=== PATIENT | female | born 1935 | race Caucasian/White ===

== ENCOUNTER 2023-06-09 14:34 | Inpatient (IN) | payer MEDICARE, OTHER, SELFPAY ==
[2023-06-09] VITALS (11 sets, daily range): BP systolic 159–206; BP diastolic 73–111; BMI 25.4
[2023-06-09 09:06] LABS: Glucose - Point of Care 165 mg/dl (70-99)
--- NOTE | 2023-06-09 09:12 | ED.GENMED ---
History of Present Illness
General
Chief Complaint: Change in Mental Status
Source: patient
Exam Limitations: none
Time Seen by Provider: 06/09/23 08:56
Nursing documentation reviewed up to this point in time: agreed with
Travel History
Have you had any contact with someone who has COVID-19?: Unable to Answer
Do you have any symptoms of coronavirus? Fever > 100 degrees, chills, cough, shortness of breath, sore throat, loss of taste or smell, muscle aches, or headache?: Unable to Answer
History of Present Illness
History of Present Illness:
Patient presents to ED from home after fall, heard by neighbors, as she lives in apartment complex. Patient denies loss of consciousness. Patient states that she is slumped forward, does not know why. Denies head injury. Denies headache. Denies
dizziness. Per paramedics, patient was found to be alert, awake, and with her daughter went arrived at scene. Patient was already up and walking around, but noted to have incontinence of urine. Upon arrival, patient is alert and awake but mildly
confused. Patient however, does not have any complaints. Denies recent illness. Denies recent change in medications or diet.
Past History
Past History
ED Past Medical History: Cancer (Breast), HTN and Psychiatric (Depression)
ED Past Surgical History: Tonsilectomy and Other (Lumpectomy, carpal tunnel)
Social History
Tobacco: Former smoker
Alcohol: Occasional
Drug: None
Personal:
Living: with family
Employment: Employed ([employer])
Review of Systems
Review of Systems
Allergies reviewed?: Yes
All Other Systems: ROS reviewed and negative except as documented in HPI and ROS
Constitutional: Reports no symptoms; Denies fatigue or chills
EENT: Reports no symptoms
Respiratory: Reports no symptoms
Cardiac: Reports no symptoms
ABD/GI: Reports no symptoms
: Reports no symptoms
Musculoskeletal: Reports no symptoms
Skin: Reports no symptoms
Neurological: Reports no symptoms
Phy Exam
Physical Exam
Physical Exam:
Physical Exam
General: no apparent distress, not acutely ill. afebrile.
Head: nc/at. eomi
Neck: supple. no meningeal signs.
Heart: s1/s2 regular rate and rhythm, no murmur. equal radial pulses.
Lungs: no acute respiratory distress. clear bilaterally
Abdomen: normal bowel sounds. not tender.
Neuro: alert and oriented x 2. no focal neurological deficits
Skin: no rash
Psychiatric: well kept.
Extremities: right knee: well healed surgical scar with mild swelling/warmth. mildly tender to palpation.
Course
Orders/Labs/Results
Orders:
Orders
06/09/23 09:06
Electrocardiogram (*1) Urgent
Reason for Study: TIA/Stroke
CT Head W/o Iv Contrast Urgent
Comment:
Reason For Exam: mental status change with fall
EKG- Treatment ONCE
06/09/23 09:39
0.9% Sodium Chloride 1000 ml [Nss] 1,000 ml IV BOLUS
Acetaminophen [Tylenol] 650 mg PO NOW STA
06/09/23 Lunch
Cholesterol Lowering
At Your Request: Limited, [employer] Required
Cholesterol Lowering: Sodium, 2 Gram
06/09/23 10:29
Alcohol Urgent
COVID-19 Antigen Urgent
Source: Nasal Swab
Complete Blood Count/With Diff Urgent
Comprehensive Metabolic Panel Urgent
Erythrocyte Sed Rate Urgent
Comment: ADD ON
Lactic Acid Q4H
Comment: CANCEL 2nd LACTIC ACID IF 1st LACTIC ACID IS LESS THAN 2
Magnesium Urgent
Troponin I Urgent
Influenza A+B Rapid Molecular Urgent
PERRY Source: Nasal Swab
Specimen Description:
06/09/23 12:47
Lactic Acid Q4H
Comment: CANCEL 2nd LACTIC ACID IF 1st LACTIC ACID IS LESS THAN 2
Urinalysis Reflex To Culture Urgent
Date Specimen was Collected: 06/09/23
Time Specimen was Collected: 10:41
Urine Microscopic Reflex Cult Urgent
Urine Culture Urgent
PERRY Source: U
Specimen Description:
Date Specimen was Collected: 06/09/23
Time Specimen was Collected: 10:41
06/09/23 13:22
Add On - Microbiology Urgent
Tests Added?: urine culture
06/09/23 13:30
0.9% Sodium Chloride 500 ml [Nss] 500 ml IV BOLUS
06/09/23 13:40
Add On- LAB Urgent
Tests Added?: ESR, CRP
06/09/23 14:18
ORTHOPEDIC CONSULT Routine
Consulting Provider: Oni Sosa
Was physician already notified: Yes
06/09/23 14:19
Knee, Right 4 or More Views [CR Knee- Right 4 Or More View*] Routine
Comment:
Reason For Exam: R knee pain and swelling
06/09/23 14:20
Add On- LAB Routine
Tests Added?: alcohol level
06/09/23 14:24
Admit/Transfer Patient As Directed
Co-Sign Provider:
Level of Care: Inpatient admission
Assign to:: Telemetry
Physician / Group: Manuel/hospitalist
Diagnosis: confusion/fever
Reason for Telemetry: Arrhythmia
Date to Stop Telemetry: 06/12/23
Time to Stop Telemetry: 11:00
Reason for Hospitalization: confusion/fever
Expected length of stay greater than two midnights?: Yes
ELOS- Estimated Length of Stay in days: 3
I certify the patient meets the requirements for IP care: Yes
06/09/23 14:26
Code Status As Directed
Resuscitation Status: Full Code
06/09/23 19:46
0.9% Sodium Chloride [Nss (Preservative Free)] See Protocol IV PRN PRN
Acetaminophen [Tylenol] 650 mg PO Q4HPRN PRN
Enoxaparin Sodium [Lovenox] 40 mg SC QPM
FOLic ACID [Folvite] 1 mg 0.9% Sodium Chloride 50 ml [Nss] 50 ml IV DAILYPRN
Lorazepam [Ativan] 1 mg IV Q1HPRN PRN
Lorazepam [Ativan] 1 mg PO Q2HPRN PRN
Lorazepam [Ativan] 2 mg IV Q1HPRN PRN
Ondansetron Injectable [Zofran] 4 mg IV Q6HPRN PRN
06/09/23 19:46
Case Management Consult Once
Case Management Consult: Other
Comment: Substance abuse counseling
DIETARY CONSULT Routine
Reason for Consult: Nutrition support, possible refeeding guidelines
Activity As Directed
Activity Level: As Tolerated
MSAS SCORE As Directed
MSAS Score 0-4: Repeat MSAS every 2 hours until 0-4 for three consecutive assessments, then every 4 hours x 48
hours.
MSAS Score 5-7: For MILD withdrawl symptoms. Repeat MSAS and RASS every 2 hours
MSAS Score 8-11: For MODERATE withdrawal symptoms. Repeat MSAS and RASS every 1 hour. Consider ICU or IMU
level of care.
MSAS Score > 11: For SEVERE withdrawal symptoms. Repeat MSAS and RASS every 1 hour. Notify provider, consider
ICU level of care.
MSAS Additional Instructions: If no improvement or no decrease in score from severe to moderate within 12
hours, consult psychiatry
MSAS Notify Provider: Notify provider if patient requires more than 10 mg of Lorazepam in eight hour period.
Vital Signs As Directed
Frequency: Per unit guidelines
DX Deep Vein Thrombosis Video Routine
06/09/23 20:00
Sennosides [Senokot] 17.2 mg PO BID
Thiamine Injection 200 mg IV Q12
06/09/23 21:00
CefTRIAXone [Rocephin] 1,000 mg IV Q24H
06/09/23 22:00
Famotidine [Pepcid] 20 mg PO HS
06/10/23 06:20
Basic Metabolic Panel IN AM
Complete Blood Count/No Diff IN AM
Magnesium IN AM
06/10/23 08:00
Duloxetine Delayed Release [Cymbalta Delayed Release] 20 mg PO DAILY
FOLic ACID [Folvite] 1 mg PO DAILY
Metoprolol Xl [Toprol Xl] 25 mg PO DAILY
06/10/23 12:00
Olmesartan Medoxomil [Benicar] 40 mg PO NOON
06/11/23 06:00
Basic Metabolic Panel IN AM
Complete Blood Count/No Diff IN AM
06/12/23 06:00
Basic Metabolic Panel IN AM
Complete Blood Count/No Diff IN AM
06/12/23 11:00
DC Protocol for Telemetry ONCE
06/12/23 20:00
Thiamine HCl [Vitamin B1] 100 mg PO BID
06/13/23 06:00
Basic Metabolic Panel IN AM
Complete Blood Count/No Diff IN AM
06/14/23 06:00
Basic Metabolic Panel IN AM
Complete Blood Count/No Diff IN AM
Abnormal Lab Results
06/09/23 06/09/23 06/09/23
09:04 10:29 12:47
RBC 7.01 H 10^6/uL
(4.20-5.40)
Hgb 19.6 H g/dL
(12.0-16.0)
Hct 57.8 H %
(37.0-47.0)
Absolute Neuts (auto) 7.7 H 10^3/uL
(1.4-6.5)
Absolute Lymphs (auto) 0.7 L 10^3/uL
(1.2-3.4)
Neutrophils % 86.5 H %
(42.2-75.2)
Lymphocytes % 7.8 L %
(20.5-51.1)
Sodium 134 L mmol/L
(135-145)
Glucose 130 H mg/dl
(70-99)
Lactic Acid 2.9 H mmol/L
(0.7-2.0)
Magnesium 1.5 L mg/dl
(1.6-2.3)
Total Bilirubin 1.4 H mg/dl
(0.2-1.3)
Urine Ketones 2+ A
(Negative)
Ur Occult Blood Reflex 2+ A
(Negative)
Urine RBC 11-15 A /HPF
(0-2)
Urine Bacteria (Reflex) Few A
(Negative)
Urine Albumin (Reflex) 3+ A
(Neg - Trace)
POC Glucose 165 H mg/dl
(70-99)
06/09/23 10:29
06/09/23 10:29
Vital Signs
Initial and Last Documented VS:
Initial Vital Signs
Temp Pulse BP Pulse Ox
99.1 F 66 194/87 93
06/09/23 09:00 06/09/23 09:00 06/09/23 09:00 06/09/23 09:00
Last Documented Vital Signs
Temp Pulse Resp BP Pulse Ox
97.7 F 64 20 147/77 94
06/10/23 07:30 06/10/23 07:30 06/10/23 07:30 06/10/23 07:30 06/10/23 07:30
MDM/Problems Addressed
MDM/Problems Addressed:
History and exam concerning for likely viral illness, contributing to transient confusion noted during observation, although improving. Will be admitted for further evaluation and treatment.
Blood cx and urine cx pending.
ESR, CRP ordered due to mild right knee swelling/warmth, s/p replacement in 04/01.
*EKG
Interpreted by ED Provider?: Yes
EKG Intrepretation Date: 06/09/23
Heart Rate: 64
Rate: normal
Rhythm: sinus and PAC's
Sage: normal axis
Interval: normal interval
QRS Pattern: right bundle branch block
*Critical Care Note
Total Time (30-74mins, 75-104mins- exclusive of procedures): Not Applicable
ED Attending Note
-
Portions of this chart may have been created with voice recognition software.� Occasional wrong word or��sound alike� substitutions may have occurred due to the inherent limitations of voice recognition software.
Discharge Plan
Departure
Patient Disposition: Admit
Date of Disposition: 06/09/23
Time of Disposition: 13:51
Presentation/result/management discussed w/ accepting MD/DO: Hospitalist
Condition: Fair
Covid-19: Negative COVID-19
Discharge Problem:
Fever, Altered mental status
Interventions
Interventions:
*Risk Screen - Suicide Last Done: 06/09/23 10:59
*General Assessment Last Done: 06/09/23 10:59
*Neglect/Abuse Screening Last Done: 06/09/23 10:59
ED- Fall Risk Assessment Last Done: 06/09/23 20:03
*ED COVID-19 Vaccine History Last Done: 06/09/23 10:59
*Nursing Disposition Last Done: 06/09/23 20:03
ED- Pulmonary Assessment Last Done: 06/09/23 20:03
ED- Neurological Assessment Last Done: 06/09/23 18:18
ED Swallowing Screen Last Done: 06/09/23 11:02
Discharge Date and Time
Discharge Date/Time: 06/09/23 20:04
[2023-06-09] MEDS: NSS 1000 IV (10:30)
[2023-06-09] MEDS: TYLENOL 650 MG PO (10:30)
[2023-06-09 10:44] LABS: % Basophils 0.3 % (0-2); % Immature Granulocytes 0.5 % (0-0.5); % Lymphocytes 7.8 % (20.5-51.1); % Monocytes 4.9 % (1.7-9.3); % Neutrophils 86.5 % (42.2-75.2); Absolute Lymphocytes 0.7 10^3/uL (1.2-3.4); Absolute Monocytes 0.4 10^3/uL (0.1-0.6); Absolute Neutrophils 7.7 10^3/uL (1.4-6.5); Hematocrit 57.8 % (37.0-47.0); Hemoglobin 19.6 g/dL (12.0-16.0); Mean Corp Hgb Conc. 33.9 g/dL (33.0-37.0); Mean Corpuscular Volume 82.5 fL (81.0-99.0); Mean Platelet Volume 8.8 fL (7.4-10.4); Nucleated Red Blood Cells % 0 %; Platelet Count 140 10^3/uL (130-400); Red Blood Cell Count 7.01 10^6/uL (4.20-5.40); Red Cell Dist. Width 14.4 % (11.5-14.5); White Blood Cell Count 8.9 10^3/uL (4.8-10.8)
[2023-06-09 11:01] LABS: Lactic Acid 2.9 mmol/L (0.7-2.0)
[2023-06-09 11:10] LABS: ALT (SGPT) 16 U/L (0-35); AST (SGOT) 29 U/L (14-36); Albumin 4.3 g/dl (3.5-5.0); Alkaline Phosphatase 82 U/L (38-126); Blood Urea Nitrogen 12 mg/dl (7-17); Calcium 8.7 mg/dl (8.4-10.2); Carbon Dioxide 26 mmol/L (22-30); Chloride 98 mmol/L (98-107); Glucose 130 mg/dl (70-99); Magnesium 1.5 mg/dl (1.6-2.3); Potassium 3.5 mmol/L (3.5-5.1); Sodium 134 mmol/L (135-145); Total Bilirubin 1.4 mg/dl (0.2-1.3); Total Protein 7.2 g/dl (6.3-8.2); eGFR > 60.00
[2023-06-09 11:13] LABS: Troponin I 0.034 ng/ml
[2023-06-09 11:49] LABS: COVID-19 Antigen Negative (Negative)
[2023-06-09 12:59] LABS: Urine Albumin 3+ (Neg - Trace); Urine Bilirubin Negative (Negative); Urine Character Clear (Clear); Urine Color Yellow; Urine Glucose Negative (Negative); Urine Ketone 2+ (Negative); Urine Leukocyte Negative (Negative); Urine Nitrite Negative (Negative); Urine Occult Blood 2+ (Negative); Urine Urobilinogen Negative (Neg - 1+)
[2023-06-09 13:14] LABS: Lactic Acid 1.7 mmol/L (0.7-2.0)
[2023-06-09 13:16] LABS: Urine Mucus Few; Urine Squamous Cell 0-2 /LPF (Few)
[2023-06-09 13:18] LABS: Urine Amorphous Seen; Urine Hyaline Cast 0-2 /LPF (0-2)
[2023-06-09 13:19] LABS: Urine Bacteria Few (Negative); Urine White Cell 0-2 /HPF (0-5)
--- NOTE | 2023-06-09 13:47 | HPS.HSE ---
Addendum entered and electronically signed by Margot Jackson MD 06/09/23 14:50:
Allergies
Allergy/AdvReac Type Severity Reaction Status Date / Time
ibuprofen [From Advil] Allergy Anaphylaxis Verified 06/09/23 11:11
Home Medications
duloxetine 20 mg capsule,delayed release 20 mg PO DAILY 09/10/13
metoprolol succinate 25 mg tablet,extended release 24 hr 25 mg PO DAILY 03/22/23
olmesartan 40 mg tablet 40 mg PO NOON #0 tabs 03/25/23
febuxostat 40 mg tablet (Uloric) 40 mg PO DAILY 06/09/23
Original Note:
Family Physician
-
Family Physician: PHYSICIAN PRIVATE
Chief Complaint
-
fall and fever
History of Present Illness
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
Patient denies loss of consciousness/ head injury etc. She is AOx3 but slow to respond to question.
Per daughter, she is more confused compared to baseline. Also with fever and incontinence of urine.�
Patient continues to drink alcohol daily.
Medical History
Past Medical History
Past Medical History: Reports Other
Additional Past Medical History:
HTN
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
Emphysema
daily alcohol drinking
recent R knee replacement by ortho 03/24/2023
Past Surgical History: Reports Other
Additional Past Surgical History:
R knee replacement by ortho 03/24/2023
Social History
Tobacco: Non-smoker
Alcohol: Daily
Living: Alone
Family History
Family History: Not pertinent
Allergies / Home Medications
Allergies reflects when Allergies were last updated in [employer].
Home Medications with original date entered in [employer]
Allergy/Medication List:
Medications on admission are unable to be verified or confirmed at this time.
Review of Systems
-
Constitutional: Reports Fever
Physical Exam
Vital Signs
Vital Signs
Temp Pulse Resp BP Pulse Ox
37.3 C 63 33 195/111 88
06/09/23 09:00 06/09/23 12:30 06/09/23 12:30 06/09/23 11:50 06/09/23 12:30
Physical Exam
General: Well Developed, Well Nourished, No Apparent Distress, Comfortable and Conversant
HEENT: NormoCephalic, Moist mucous membranes and Atraumatic
Respiratory: Clear and Non Labored Respirations; No Accessory Resp Muscle Use
Cardiac: S1/S2, Regular Rhythm and Murmur; No Rub
GI: Soft, Non Tender, Non Distended and Normal Bowel Sounds; No Organomegaly
Rectal: Deferred by Provider
Musculoskeletal: No Clubbing, No Cyanosis and No Edema
Skin: No Rash
Neuro: Awake and Alert
Psych: Calm
Laboratory Results
-
06/09/23 10:29
06/09/23 10:29
Laboratory Results
Lactic Acid 1.7 mmol/L (0.7-2.0) 06/09/23 12:47
Total Bilirubin 1.4 mg/dl (0.2-1.3) H 06/09/23 10:29
AST 29 U/L (14-36) 06/09/23 10:29
ALT 16 U/L (0-35) 06/09/23 10:29
Alkaline Phosphatase 82 U/L (38-126) 06/09/23 10:29
Troponin I 0.034 ng/ml 06/09/23 10:29
Data Reviewed
-
Lab Data: Labs Reviewed by me
Impression/Plan
-
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
Patient denies loss of consciousness/ head injury etc. She is AOx3 but slow to respond to question.
Per daughter, she is more confused compared to baseline. Also with fever and incontinence of urine.�
Patient continues to drink alcohol daily.
A/P:
# Confusion/acute metabolic encephalopathy per daughter
# Mechanical fall at home
# Urinary incontinence, possible UTI
# lactic acidosis POA, resolved
CT head unrevealing
Check urine Cx
Ceftriaxone after eval by ortho (see below)
Ortho CS for
PT OT eval for fall
# R Knee osteoarthritis s/p right total knee arthroplasty by Dr. Medardo Isbell on 03/24/2023.
R knee warm and swollen on exam
Check R knee XR
Ortho CS for eval of joint aspiration (hopefully aspiration to occur before initiation of antibiotic)
# systolic murmur on exam
No significant valvular heart disease�with mild tricuspid regurgitation from recent echo 03/2023.
Will check repeat echo
# Essential Hypertension.
Cont FOOD WRITER Toprol/Olmesartan with holding parameter
# First-degree atrioventricular block, right bundle branch block, left anterior fascicular block, and premature ventricular contractions, asymptomatic.
Echo from 03/2023: EF 60�to 65%.� There is grade 1 diastolic dysfunction.�
# Chronic emphysema, stable
# h/o Pernicious anemia
Hgb high this admission, possibly relate to hemoconcentration
# Daily alcohol, two drinks reported daily.
MSAS protocol
DVT ppx: Lovenox SQ
FC
[2023-06-09] MEDS: NSS 500 IV (14:00)
[2023-06-09 14:07] LABS: Erythrocyte Sed Rate 1 mm/hour (0-20)
--- NOTE | 2023-06-09 17:09 | CON.MD ---
Consultation - Medical
-
Patient seen and examined
Patient presents with change in mental status and fall
Patient and daughter states that patient has had swollen knee since the surgery and has been working on ROM with the therapist. They have not noticed any difference in terms of pain or function
The right knee is definitely more swollen compared to the left, but there is no erythema, slight warmth. No pain with AROM of the knee
X-rays show no hardware complications
I do not believe the knee is the source of infection.
Will continue to monitor
[2023-06-09 18:12] LABS: Alcohol None Detected
--- NOTE | 2023-06-09 21:00 | PTCARENOTE ---
Patient received from ED via stretcher and was assisted to bed by staff. DIL at bedside. They were oriented to room and surroundings. As reported by ED staff patient with expressive aphasia. She uses wrong words in her speech but is aware and
frustrated by this. Able to understand meaning through the rest of the sentence. She passes her swallow eval. NIH-1. During admission intake mixed information presented by patient and daughter in law. Patient forgetful of some history and
gives different information at different times. She does state that she had nausea and vomiting 1-2 days prior to fall. She cannot recall her last cocktail but believes it may have been Wednesday night. She states her walker tipped over and then
she fell. She does not know how long she was on the floor before her daughter found her. Plan of care reviewed with patient and her DIL. See nursing assessment for physical findings.
[2023-06-09] MEDS: LOVENOX 40 MG SC (22:32)
[2023-06-09] MEDS: SENOKOT 17.1999999999999993 MG PO (22:33)
[2023-06-09] MEDS: THIAMINE INJECTION 200 MG IV (22:33)
[2023-06-09] MEDS: ROCEPHIN 1000 MG IV (22:34)
[2023-06-09] MEDS: STERILE WATER FOR INJECTION 10 ML IV (22:34)
[2023-06-09] MEDS: PEPCID 20 MG PO (22:34)
[2023-06-09] MEDS: FLUSH (NSS) 2 FLUSH IV (22:35)
[2023-06-10] VITALS (7 sets, daily range): BP systolic 144–175; BP diastolic 67–90; PULSE 61; O2SAT 93
[2023-06-10] MEDS: LOPRESSOR 12.5 MG PO (00:20)
[2023-06-10] MEDS: TYLENOL 650 MG PO (00:21)
[2023-06-10] MEDS: SENOKOT 17.1999999999999993 MG PO ×2 (07:39→20:38)
[2023-06-10] MEDS: CYMBALTA DELAYED RELEASE 20 MG PO (07:39)
[2023-06-10] MEDS: TOPROL XL 25 MG PO (07:39)
[2023-06-10] MEDS: THIAMINE INJECTION 200 MG IV ×2 (07:40→20:40)
[2023-06-10] MEDS: FOLVITE 1 MG PO (07:40)
--- NOTE | 2023-06-10 07:51 | W.PN.UPDATE ---
Update Note
Progress Note Update
Patient seen and evaluated by orthopedic surgery this morning. She is lying in bed comfortably, does not appear to be in any acute distress. She presented to ED yesterday with change in mental status and fall. On admission, patient also had a
fever; currently 98.3F. Patient had a right total knee replacement performed on 03/24/[address] Isbell. She denies any change or increase in swelling of her right knee since her surgery. She denies any difference in terms of pain or function
since her surgery. ESR 1. CRP 6.80. WBC from 06/09/2023 within normal limits. Clinically, the right knee does have a mild effusion in comparison to the contralateral side, however no signs of erythema or increased pain with AROM or PROM. Slight
warmth in comparison to the contralateral side. Plain radiographs of the right knee without radiographic evidence for complication of the right total knee arthroplasty. Small suprapatellar joint effusion. Given the above information, at this time
there is low suspicion that her right knee is the source, therefore would defer aspiration of the right knee unless symptoms/clinical picture changes. Orthopedic surgery will continue to monitor and follow along.
[2023-06-10 07:54] LABS: Hematocrit 49.4 % (37.0-47.0); Hemoglobin 16.6 g/dL (12.0-16.0); Mean Corp Hgb Conc. 33.6 g/dL (33.0-37.0); Mean Corpuscular Hgb 28.2 pg (27.0-31.0); Mean Corpuscular Volume 83.9 fL (81.0-99.0); Platelet Count 146 10^3/uL (130-400); Red Blood Cell Count 5.89 10^6/uL (4.20-5.40); Red Cell Dist. Width 13.4 % (11.5-14.5); White Blood Cell Count 5.6 10^3/uL (4.8-10.8)
[2023-06-10 08:42] LABS: Blood Urea Nitrogen 13 mg/dl (7-17); Calcium 7.7 mg/dl (8.4-10.2); Carbon Dioxide 25 mmol/L (22-30); Chloride 100 mmol/L (98-107); Estimated Creatinine Clearance 55 ml/min; Glucose 84 mg/dl (70-99); Magnesium 1.6 mg/dl (1.6-2.3); Sodium 133 mmol/L (135-145); eGFR > 60.00
--- NOTE | 2023-06-10 09:02 | W.PN.HOSP.TC ---
Addendum entered and electronically signed by Margot Jackson MD 06/10/23 14:29:
Updated daughter on the phone, will check MRI brain due to her persistent confusion.
Original Note:
Today's Communication/Plan
-
see A/P
Assessment / Plan
Assessment / Plan
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
Patient denies loss of consciousness/ head injury etc. She is AOx3 but slow to respond to question.
Per daughter, she is more confused compared to baseline. Also with fever and incontinence of urine.�
Patient continues to drink alcohol daily.
A/P:
# Confusion/acute metabolic encephalopathy per daughter
# Mechanical fall at home
# Urinary incontinence, possible UTI
# lactic acidosis POA, resolved
CT head x2 unrevealing
Follow urine Cx, blood culture
Cont Ceftriaxone
PT OT eval for fall
# R Knee osteoarthritis s/p right total knee arthroplasty by Dr. Medardo Isbell on 03/24/2023.
R knee warm and slightly swollen on exam
R knee XR without complication of the right total knee arthroplasty.
Ortho on board, felt less likely right knee infection, defer aspiration of the right knee for now
# systolic murmur on exam
No significant valvular heart disease�with mild tricuspid regurgitation from recent echo 03/2023.
Check updated echo
# Essential Hypertension.
Cont NUT THREADER Toprol/Olmesartan with holding parameter
# First-degree atrioventricular block, right bundle branch block, left anterior fascicular block, and premature ventricular contractions, asymptomatic.
Echo from 03/2023: EF 60�to 65%.� There is grade 1 diastolic dysfunction.�
# Chronic emphysema, stable
# h/o Pernicious anemia
Hgb high this admission, already downtrended, cont to monitor and consider heme eval if remain elevated
# Daily alcohol, two drinks reported daily.
MSAS protocol
DVT ppx: Lovenox SQ
FC
Anticipated Discharge: > 48 hours
Subjective/Interval History
-
Date of Service: June 10, 2023
Objective Data
-
Labs:
Laboratory Results
06/10/23
06:20
WBC 5.6
Hgb 16.6 H
Hct 49.4 H
Plt Count 146
Sodium 133 L
Potassium Pending
Chloride 100
Carbon Dioxide 25
BUN 13
Creatinine 0.6
Glucose 84
Calcium 7.7 L
Vital Signs:
Vital Signs
Temp Pulse Resp BP Pulse Ox
36.5 C 64 20 147/77 94
06/10/23 07:30 06/10/23 07:30 06/10/23 07:30 06/10/23 07:30 06/10/23 07:30
I&O
06/09/23 06/10/23 06/11/23
06:59 06:59 06:59
Intake Total 60 / 60
Output Total 250 / 250
Balance -190 / -190
Review of Systems
-
All other systems: Reviewed and negative
Physical Exam
-
General: Well Developed, Well Nourished, No Apparent Distress, Comfortable and Conversant; Negative Respiratory Distress
HEENT: Normocephalic, Atraumatic, Nose Appears Normal and Ears Appear Normal; Negative Oxygen
Respiratory: Clear to Auscultation and Non Labored Respirations; Negative Accessory Resp Muscle Use
Cardiac: Regular Rhythm and S1/S2
GI: Soft, Nontender, Nondistended and Normal Bowel Sounds
Skin: Warm and Dry
Neuro: Awake and AO x 3
Psych: Calm
Data Reviewed
-
CT Scan: Report Reviewed by me
Labs: Labs Reviewed by me
[2023-06-10 09:31] LABS: Potassium 3.3 mmol/L (3.5-5.1)
[2023-06-10] MEDS: BENICAR 40 MG PO (11:15)
--- NOTE | 2023-06-10 11:51 | CM ---
Met with patient at the bedside and spoke with patient's daughter, Cinthya Esquivel, via phone; initial assessment and CM Consult completed
Patient lives alone in a 2nd floor Condo; 14 steps up to enter; Condo has a loft but the patient lives on the main level; bath has a stall shower with grab bar
Daughter and son live nearby.
PLOF: patient reports she is independent with ADLs; ambulates with walker at night and a cane when she goes outside; knee replacement in March 2023; drives
No history of SNF; currently going to outpatient therapy in [place]
Daughter will transport home
Offered counseling as CM Consult requested. Patient and daughter declined. Daughter reports that mother has 1-2 servings of alcohol every day; can stop if she wanted to and did not drink after she had her surgery for weeks when she was staying at
her daughter's house
PT recommends SNF vs Acute Rehab; list of facilities will be provided to patient and daughter when disposition determination is identified
Plan: CM will continue to follow and support discharge planning
[2023-06-10] MEDS: LOVENOX SC (16:03)
[2023-06-10] MEDS: STERILE WATER FOR INJECTION 10 ML IV (21:34)
[2023-06-10] MEDS: ROCEPHIN 1000 MG IV (21:35)
[2023-06-10] MEDS: PEPCID 20 MG PO (21:35)
[2023-06-11] VITALS (8 sets, daily range): BP systolic 131–164; BP diastolic 63–84; PULSE 67; O2SAT 94
--- NOTE | 2023-06-11 07:28 | PN.CDI ---
CDI
- -
CDI:
Physician Documentation Request
Admit Date: 06/09/23 14:34
Dear Doctor Manuel,
Please review the following and provide your response in the progress notes.
Clinical Indicators:
Laboratory Tests
06/09/23 06/10/23
10:29 06:20
Sodium 134 L 133 L
Please clarify in the progress notes, the appropriate diagnosis, if significant, that supports the above abnormalities and additional evaluation, monitoring and/or treatment rendered:
Hyponatremia
Abnormal lab value, clinically insignificant
Other
Use of terms such as suspected, likely, concern for, or probable (associated with a specific diagnosis that is being evaluated, monitored, or treated as if it exists) are acceptable and can be coded in the inpatient setting, when documented at the
time of discharge.
Thank you,
Rose Mary Shaw RN BSN CCDS
CDI Specialist
please contact via tiger text
Please use your independent medical judgment in providing your response.
--- NOTE | 2023-06-11 07:30 | PN.CDI ---
CDI
- -
CDI:
Physician Documentation Request
Admit Date: 06/09/23 14:34
Dear Doctor Manuel,
Please review the following and provide your response in the progress notes.
Clinical Indicators:
Laboratory Tests
06/09/23 06/10/23
10:29 06:20
Potassium 3.5 3.3 L
Please clarify in the progress notes, the appropriate diagnosis, if significant, that supports the above abnormalities and additional evaluation, monitoring and/or treatment rendered:
Hypokalemia
Abnormal lab value, clinically insignificant
Other
Use of terms such as suspected, likely, concern for, or probable (associated with a specific diagnosis that is being evaluated, monitored, or treated as if it exists) are acceptable and can be coded in the inpatient setting, when documented at the
time of discharge.
Thank you,
Rose Mary Shaw RN BSN CCDS
CDI Specialist
please contact via tiger text
Please use your independent medical judgment in providing your response.
[2023-06-11] MEDS: CYMBALTA DELAYED RELEASE 20 MG PO (07:31)
[2023-06-11] MEDS: TOPROL XL 25 MG PO (07:31)
[2023-06-11] MEDS: THIAMINE INJECTION 200 MG IV ×2 (07:31→20:16)
[2023-06-11] MEDS: FOLVITE 1 MG PO (07:31)
[2023-06-11] MEDS: SENOKOT 17.1999999999999993 MG PO ×2 (07:31→20:16)
[2023-06-11] MEDS: LOVENOX SC (07:38)
--- NOTE | 2023-06-11 08:41 | PN.CDI ---
CDI
- -
CDI:
Physician Documentation Request
Admit Date: 06/09/23 14:34
Dear Doctor Gil,
Please review the following and provide your response in the progress notes.
Clinical Indicators:
06/09/23 06/10/23
10:29 06:20
Potassium 3.5 3.3 L
Please clarify in the progress notes, the appropriate diagnosis, if significant, that supports the above abnormalities and additional evaluation, monitoring and/or treatment rendered:
Hypokalemia
Abnormal lab value, clinically insignificant
Other
Use of terms such as suspected, likely, concern for, or probable (associated with a specific diagnosis that is being evaluated, monitored, or treated as if it exists) are acceptable and can be coded in the inpatient setting, when documented at the
time of discharge.
Thank you,
Rose Mary Shaw RN BSN CCDS
CDI Specialist
please contact via tiger text
Please use your independent medical judgment in providing your response.
--- NOTE | 2023-06-11 08:43 | PN.CDI ---
CDI
- -
CDI:
Physician Documentation Request
Admit Date: 06/09/23 14:34
Dear Doctor Gil,
Please review the following and provide your response in the progress notes.
Clinical Indicators:
Laboratory Tests
06/09/23 06/10/23
10:29 06:20
Sodium 134 L 133 L
Please clarify in the progress notes, the appropriate diagnosis, if significant, that supports the above abnormalities and additional evaluation, monitoring and/or treatment rendered:
Hyponatremia
Abnormal lab value, clinically insignificant
Other
Use of terms such as suspected, likely, concern for, or probable (associated with a specific diagnosis that is being evaluated, monitored, or treated as if it exists) are acceptable and can be coded in the inpatient setting, when documented at the
time of discharge.
Thank you,
Rose Mary Shaw RN BSN CCDS
CDI Specialist
please contact via tiger text
Please use your independent medical judgment in providing your response.
[2023-06-11 08:57] LABS: Hematocrit 49.7 % (37.0-47.0); Hemoglobin 16.5 g/dL (12.0-16.0); Mean Corp Hgb Conc. 33.2 g/dL (33.0-37.0); Mean Corpuscular Hgb 27.8 pg (27.0-31.0); Mean Corpuscular Volume 83.8 fL (81.0-99.0); Mean Platelet Volume 9.7 fL (7.4-10.4); Platelet Count 126 10^3/uL (130-400); Red Blood Cell Count 5.93 10^6/uL (4.20-5.40); Red Cell Dist. Width 13.6 % (11.5-14.5); White Blood Cell Count 5.7 10^3/uL (4.8-10.8)
--- NOTE | 2023-06-11 09:09 | W.PN.HOSP.TC ---
Today's Communication/Plan
-
see bold
Assessment / Plan
Assessment / Plan
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
Patient denies loss of consciousness/ head injury etc. She is AOx3 but slow to respond to question. Per daughter, she is more confused compared to baseline. Also with fever and incontinence of urine.�Patient continues to drink alcohol daily.
Gen: NAD, AAOx3.
Eyes: EOMI, PERRLA, no scleral icterus.
Neck: supple.
CV: RRR, +S1/S2, no m/r/g.
Resp: CTAB, no rales, wheezes, or rhonchi.
Abd: +BS, soft, NT, ND
Skin: No rashes.
Neuro: CN 2-12 intact, non-focal.
Psych: Normal mood and affect.
Echo: Normal left ventricular size, wall thickness and systolic function. No regional
�wall motion abnormalities are seen. LV ejection fraction is 60% by Shahid's
�method of discs. Diastolic function not assessed.
�Normal right ventricular size and function.
�Thickened trileaflet aortic valve. Aortic sclerosis without stenosis. No aortic
�regurgitation is seen.
�Trace tricuspid regurgitation. Estimated pulmonary artery pressure of 30-35
�mmHg assuming a right atrial pressure of 3 mmHg.
�
�Compared to prior study dated 03/10/23 which was directly reviewed, no
�significant change within limits of the study quality
CT brain: No acute intracranial abnormalities. Findings again seen compatible with diffuse cortical atrophy with nonspecific white matter changes as described above.
Repeat CT brain: No acute intracranial abnormality.
Acute metabolic encephalopathy as per daughter:
-with mechanical fall at home
-note UTI has been ruled out with no pyuria and NEG UCx, stop Rocephin
-Lactic acidosis POA, resolved
-CT head NEG x 2
-PT/OT
R Knee osteoarthritis:
-s/p right total knee arthroplasty by Dr. Medardo Isbell on 03/24/2023.
-R knee warm and slightly swollen on exam
-R knee XR without complication of the right total knee arthroplasty.
-Ortho on board, felt less likely right knee infection, defer aspiration of the right knee for now
Other problems:
Essential Hypertension: Cont BB/ARB
First-degree atrioventricular block, right bundle branch block, left anterior fascicular block, and premature ventricular contractions, asymptomatic.
Chronic emphysema
h/o possible polycythemia vera, Hb down
Daily alcohol use of two drinks daily: MSAS protocol
Hyponatremia, resolved
Hypokalemia, resolved
FULL/Lovenox
Medically stable for discharge. Case management aware.
Anticipated Discharge: Today
Subjective/Interval History
-
Date of Service: June 11, 2023
No new complaints. Denies chest pain or shortness of breath
Objective Data
-
Labs:
Laboratory Results
06/11/23
08:18
WBC 5.7
Hgb 16.5 H
Hct 49.7 H
Plt Count 126 L
Sodium Pending
Potassium Pending
Chloride Pending
Carbon Dioxide Pending
BUN Pending
Creatinine Pending
Glucose Pending
Calcium Pending
Vital Signs:
Vital Signs
Temp Pulse Resp BP Pulse Ox
98.5 F 72 22 145/75 92
06/11/23 07:30 06/11/23 07:30 06/11/23 07:30 06/11/23 07:30 06/11/23 07:30
I&O
06/10/23 06/11/23 06/12/23
06:59 06:59 06:59
Intake Total 60 / 60 840 / 840
Output Total 250 / 250
Balance -190 / -190
[2023-06-11 09:17] LABS: Blood Urea Nitrogen 16 mg/dl (7-17); Calcium 8.5 mg/dl (8.4-10.2); Carbon Dioxide 28 mmol/L (22-30); Chloride 99 mmol/L (98-107); Estimated Creatinine Clearance 55 ml/min; Glucose 99 mg/dl (70-99); Potassium 3.6 mmol/L (3.5-5.1); Sodium 136 mmol/L (135-145); eGFR > 60.00
--- NOTE | 2023-06-11 09:29 | W.PN.UPDATE ---
Update Note
Progress Note Update
Patient ambulating from the latrine this morning on her walker at the time of rounds. upon questioning she reports her knee feels much better. Still mildly swollen but no clinical (visual or on exam) signs of PJI. Absolutely no indication to
aspirate. Afeb this AM. WBC WNL. Inflammatory markers WNL. Appreciate the primary team with her continued workup. If deemed safe PT/OT could be considered for her right knee. Orthopedic surgery to follow peripherally at this time. Please reengage
with any questions throughout the course of her admission as it necessitates
[2023-06-11] MEDS: BENICAR 40 MG PO (11:59)
--- NOTE | 2023-06-11 14:16 | CM ---
Addendum entered by Denise Bridges 06/11/23 16:07:
Patient has been accepted at [facility] 06/12/23, per Patient daughter Cinthya will transport. Needs COVID test, IMM completed and placed on chart.
[facility]
Report [phone]

Addendum entered by Denise Bridges 06/11/23 15:07:
[facility] do not have a bed for patient. Plan is [facility], referral sent to [facility] and waiting on a determination.
Original Note:
clubhouse manager reviewed patient's chart and rehab options reviewed. Referral sent to [facility] and to [facility], patient's is also agreeable to [facility].
Plan; Await determination from [facility] and then reach out to [facility] for a bed tomorrow if there are no beds at [facility].
--- NOTE | 2023-06-11 15:54 | CON.NEURO4 ---
Consultation - Neurology 4
-
CONSULTING PHYSICIAN: Gina Petersen
REFERRING PHYSICIAN: Hospitalist
DICTATED BY: Gina Petersen
DATE/TIME OF REQUEST: 06/11/23
DATE/TIME OF CONSULTATION: 06/11/23
Reason for Consultation: Stroke on MRI brain
History of Present Illness:
Patient is an 88-year-old woman with a past medical history of hypertension, emphysema, alcohol use who presented to hospital with confusion. She had had a mechanical fall at home and at first was thought to have urinary tract infection was treated
with antibiotics but had negative urine cultures so antibiotics were stopped and MRI of the brain was obtained which showed 2 small infarcts in the right occipital lobe which were acute.
Patient says that she did have some degree of a significant headache in the past couple days but denies any slurred speech unilateral weakness or paresthesia, she denies any history of stroke she says used to take aspirin many years ago but stopped.
She has not had any intestinal bleeding problems or stomach ulcers or serious bleeding issues in her life to her knowledge. Denies any history of coronary artery disease or [place], does relate a history of hypertension.
Past Medical History: Hypertension, osteoarthritis, emphysema
Surgical History: Right knee arthroplasty
Family History: Non-contributory
Social History: Retired, average about 3 drinks of gin a week, no tobacco, no recreational drugs
Review of Symptoms:
Patient denies any fever, headache, chest pain, shortness of breath, GI or symptoms.
Physical Exam:
Neurologic Examination:
The patient is awake, alert and oriented x 3. She is able to follow commands and answer questions appropriately. There is no aphasia or dysarthria. On cranial nerve assessment, pupils are 3 mm bilateral, round and reactive to light and
accommodation. Visual warner are full. Extraocular movements are intact. Facial sensations are intact and bilaterally symmetrical, there is no facial asymmetry. Hearing is intact bilaterally to normal conversation volume. Tongue palate and uvula
are midline. Sternocleidomastoid strengths are full bilaterally. Motor strengths are 5/5 bilateral upper and lower extremities on medical research Ki[place] scale. There is no drift or involuntary movement noted. Deep tendon reflexes are 2+ bilateral
upper and lower extremities and Babinski is absent bilaterally. Sensations of pain, touch, temperature and vibration are intact and bilaterally symmetrical. There was no extinction noted on double simultaneous stimulation. Coordination is intact by
finger to nose bilaterally.
Neuro Imaging:
IMPRESSION:
1. � Small 6.7 mm and 2.5 mm ACUTE ISCHEMIC INFARCTS in the POSTERIOR RIGHT OCCIPITAL LOBE.
2. � 3.5 mm acute ischemic infarct in the periventricular posterior left temporal lobe.
3. � Moderate white matter leukoaraiosis in the frontal and parietal lobes.
4. � Moderate diffuse cerebral and cerebellar volume loss.
5. 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
6. � Severe mucosal disease in the left ethmoid air cells.
7. � Moderate to large amount of fluid in the left mastoid air cells.
Impressions
1. 2 small areas of right occipital lobe infarct, acute and explain her confusion and headache. Atheroembolic versus cardioembolic etiology
2. Hypertension as main risk factor for stroke
3. Mildly dilated left atrium on TTE, normal EF
4.
Patient has the following risk factors for their symptoms: hypertension, age
Recommendations:
1. Goal normotension
2. Given aspirin 325 mg once today and start aspirin 81 mg daily tomorrow. Will avoid DAPT therapy with age, mild thromboytopenia, alcohol use and bleeding risks
3. Check MRA of head and neck
4. Already has TTE, continue cardiac telemetry
5. Check lipid panel
6. Continue Atorvastatin 40 mg daily
7. Neurologic checks and NIH scales
8. Not going to recommend restricting driving with no discernable vision deficits
9. Stroke education materials
10. Should get short term cardiac monitoring to start as outpatient and if negative would consider [facility]/implanted complementary health therapists
Will follow
Discussed patient care with: Patient and Dr Cordero
NIH Stroke Score
Subsequent NIH Scale
Date of Subsequent NIH Scale: 06/11/23
Time of Subsequent NIH Scale: 15:57
NIH Stroke Score
Level of Consciousness: 0 - Alert
LOC Questions: 0-Answers both correctly
LOC Commands: 0-Performs both correctly
Best Horizontal Gaze: 0-Normal
Visual Warner: 0=Normal, no visual loss
Facial Palsy: 0=Normal, symmetrical
Motor - Right Arm: 0=No drift 10 seconds
Motor - Left Arm: 0=No drift 10 seconds
Motor - Right Le-No drift 5 seconds
Motor - Left Le-No drift 5 seconds
Limb Ataxia: 0-Absent
Sensation: 0-Normal
Best Language: 0-No aphasia
Dysarthria: 0-Normal
Extinction and Inattention: 0-No abnormality
Total Score:: 0
Home Medications
-
Home Medications
duloxetine 20 mg capsule,delayed release 20 mg PO DAILY Neurological Condition 09/10/13
metoprolol succinate 25 mg tablet,extended release 24 hr 25 mg PO DAILY Blood Pressure 03/22/23
olmesartan 40 mg tablet 40 mg PO NOON #0 tabs 03/25/23
febuxostat 40 mg tablet (Uloric) 40 mg PO DAILY Gout 06/09/23
Vital Signs / Labs
-
Vital Signs and Labs:
Temp Pulse Resp BP Pulse Ox
97.6 F 64 18 162/84 95
06/11/23 15:47 06/11/23 15:47 06/11/23 15:47 06/11/23 15:47 06/11/23 15:47
06/11/23 08:18
06/11/23 08:18
06/11/23
08:18
RBC 5.93 H
Hgb 16.5 H
Hct 49.7 H
Plt Count 126 L
[2023-06-11] MEDS: LIPITOR 40 MG PO (16:04)
[2023-06-11] MEDS: ASPIRIN 325 MG PO (16:04)
[2023-06-11] MEDS: PEPCID 20 MG PO (20:16)
[2023-06-11] MEDS: FLUSH (NSS) 1 FLUSH IV (20:18)
[2023-06-12 03:21] VITALS: BP 174/75
[2023-06-12 05:31] VITALS: BMI 25.8
[2023-06-12 07:26] LABS: Hematocrit 47.7 % (37.0-47.0); Hemoglobin 15.9 g/dL (12.0-16.0); Mean Corp Hgb Conc. 33.3 g/dL (33.0-37.0); Mean Corpuscular Hgb 28.2 pg (27.0-31.0); Mean Corpuscular Volume 84.7 fL (81.0-99.0); Platelet Count 122 10^3/uL (130-400); Red Blood Cell Count 5.63 10^6/uL (4.20-5.40); Red Cell Dist. Width 13.5 % (11.5-14.5); White Blood Cell Count 4.5 10^3/uL (4.8-10.8)
[2023-06-12 07:43] LABS: Blood Urea Nitrogen 13 mg/dl (7-17); Calcium 8.3 mg/dl (8.4-10.2); Carbon Dioxide 31 mmol/L (22-30); Chloride 102 mmol/L (98-107); Estimated Creatinine Clearance 55 ml/min; Glucose 93 mg/dl (70-99); HDL Cholesterol 52 mg/dl; LDL Cholesterol, Calculated 62 mg/dl; Potassium 3.5 mmol/L (3.5-5.1); Sodium 136 mmol/L (135-145); Total Cholesterol 137 mg/dl (50-199); Triglyceride 115 mg/dl (10-149); Very Low Density Lipoprotein 23 mg/dl (0-30); eGFR > 60.00
[2023-06-12 07:46] VITALS: BP 158/73
--- NOTE | 2023-06-12 08:06 | W.PN.NEURO.1 ---
Today's Communication / Plan
-
-Goal normal blood pressure
-Neurologic checks NIH stroke scale
-Recommend starting with outpatient cardiac monitoring and if this is negative would pursue implanted media monitor given moderate to high suspicion of occult atrial fibrillation
-Continue aspirin 81 mg daily
-LDL is 62 less than the goal of 70, would decrease dose to atorvastatin 10 mg daily given she is at LDL goal and for tolerability
-No further inpatient neurologic workup or monitoring is felt necessary, no barriers to discharge from my standpoint
-She should have neurology follow-up in approximate 4 to 6 weeks as an outpatient
-No interventions or interventional evaluation felt necessary for 4 mm JUD brain aneurysm which is asymptomatic
Call with questions and concerns
Neuro Assessment/Plan
Assessment
MRI brain showed 2 areas of acute infarct in the right occipital lobe, presented with headache, vomiting, confusion.
MRA head and neck
1. � Minimal amount of atherosclerotic plaque in both proximal internal carotid arteries without stenosis or occlusion.
2. � Low-lying bilateral carotid bifurcations.
3. � Tortuous bilateral common carotid arteries.
4. 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
5. � No MRA evidence for vertebral artery stenosis or occlusion.
6. 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
Assessment
88-year-old woman with embolic appearing stroke in the right occipital lobe, most likely etiology is atheroembolic versus cardioembolic.
TTE did show mild left atrial dilation. Moderate to high suspicion for occult atrial fibrillation as a source of stroke.
There is no serious atherosclerosis or stenosis in the vertebral arteries or posterior circulation which is the area of the right occipital lobe ischemic stroke
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
risk factor for aneurysm rupture is controlled hypertension avoid tobacco excessive alcohol
Subjective/Objective
Subjective Data
Date of Service: June 12, 2023
No acute events, patient denies headache, discussed stroke prevention, neurology follow up, would recommend outpatient cardiac monitoring
Objective Data
Vital Signs
Temp Pulse Resp BP Pulse Ox
98.4 F 66 16 158/73 98
06/12/23 07:46 06/12/23 07:46 06/12/23 07:46 06/12/23 07:46 06/12/23 07:46
Lab Results
06/12/23 06:21
06/12/23 06:21
Sodium 136 mmol/L (135-145) 06/12/23 06:21
Potassium 3.5 mmol/L (3.5-5.1) 06/12/23 06:21
BUN 13 mg/dl (7-17) 06/12/23 06:21
Glucose 93 mg/dl (70-99) 06/12/23 06:21
Calcium 8.3 mg/dl (8.4-10.2) L 06/12/23 06:21
LDL Cholesterol, Calc 62 mg/dl 06/12/23 06:21
Patient Allergies
ibuprofen [From Advil] Allergy (Verified 06/09/23 11:11)
Anaphylaxis
Review of Systems
-
History Source: Patient
All other systems: Reviewed and negative
Constitutional: No Symptoms
EENT: No Symptoms Reported
Respiratory: No Symptoms
Cardiac: No Symptoms
Abdomen/GI: No Symptoms
Genitourinary: No Symptoms
Musculoskeletal: No Symptoms
Skin: No Symptoms
Neuro: See existing Neuro Note
Endocrine: No Symptoms
Hematologic / Lymphatic: No Symptoms
Allergy / Immunology: No Symptoms
Physical Exam
-
General: No Apparent Distress and Appears Stated Age
Eyes: No Ptosis
HEENT: Normocephalic
Neck: No Bruits Bilaterally
Respiratory: No Dyspnea
Cardiac: Regular Rhythm and No Murmur
GI: Soft and Non-tender
Skin: Warm and Dry; Negative Rash
Extremities: No Edema
Psych: Negative Agitated
Extended Neurological Exam
Mood & Affect: Mood Unremarkable and Affect Unremarkable
Attention Span & Concentration: Awake, Alert and Interactive
Memory: Able to Recall
Tremor: Hand Tremor Absent
Involuntary Movement: None
Speech: Quality Unremarkable and Quantity Unremarkable; Negative Expressive Aphasia, Receptive Aphasia or Dysarthric
Cranial Nerve II: Left Eye: Pupillary Reactivity Unremarkable, Pupillary Size Unremarkable and Visual Warner Intact
Cranial Nerve II: Right Eye: Pupillary Reactivity Unremarkable, Pupillary Size Unremarkable and Visual Warner Intact
Cranial Nerves III, IV, : Extraocular Movement: Extraocular Movement Full in all Directions
Cranial Nerve VII: Facial Symmetry: Normal Facial Symmetry
Muscle Strength, Overall: Full Throughout
Muscle Bulk & Tone: Bulk Unremarkable
Pronator Drift: No Drift in Upper Extremities
Deep Tendon Reflexes: Trace Throughout
Touch Sensation: Unremarkable
Babinski Sign: Absent Bilaterally
Modified Lyn Score (MRS)
-
MRS Score:
Data Reviewed
-
MRI Head: Report Reviewed and Image Reviewed
MRA Head: Report Reviewed and Image Reviewed
MRA Neck: Report Reviewed and Image Reviewed
Echocardiogram: Report Reviewed
Labs: Report Reviewed
Lipid Profile: Report Reviewed
[2023-06-12] MEDS: TOPROL XL 25 MG PO (09:48)
[2023-06-12] MEDS: CYMBALTA DELAYED RELEASE 20 MG PO (09:48)
[2023-06-12] MEDS: LOW STRENGTH ASPIRIN 81 MG PO (09:48)
[2023-06-12] MEDS: FOLVITE 1 MG PO (09:49)
[2023-06-12] MEDS: SENOKOT 17.1999999999999993 MG PO (09:50)
[2023-06-12] MEDS: THIAMINE INJECTION 200 MG IV (09:51)
[2023-06-12 11:37] VITALS: BP 146/73
--- NOTE | 2023-06-12 12:07 | CM ---
Addendum entered by Edwige De La Cruz 06/12/23 13:38:
Covid result added to [facility]. (negative)
Addendum entered by Edwige De La Cruz 06/12/23 13:34:
TC to daughter Cinthya, updated re d/c today she will come up to floor. Nurse updated.
Original Note:
Patient for tentative d/c to [facility] [place] skilled re[facility] today.
Plan: [facility] when stable.
Daughter will transport.
Patient will need a Covid test
[facility]
Report [phone]
[2023-06-12] MEDS: BENICAR 40 MG PO (12:49)
--- NOTE | 2023-06-12 13:08 | W.DS.TRANS ---
DC Summary - Pharmacy Analyst
-
Discharge Instructions:
Instructions:
Stand-Alone Forms:
Changes to Home Medications: Yes
Discharge Medications:
DC Medications w/original date entered in [facility]
duloxetine 20 mg capsule,delayed release 20 mg PO DAILY Neurological Condition 09/10/13
metoprolol succinate 25 mg tablet,extended release 24 hr 25 mg PO DAILY Blood Pressure 03/22/23
olmesartan 40 mg tablet 40 mg PO NOON #0 tabs 03/25/23
febuxostat 40 mg tablet (Uloric) 40 mg PO DAILY Gout 06/09/23
Home Medication Changes
Active Medications
Acetaminophen (Acetaminophen 325 Mg Tablet) 650 mg PO Q4HPRN PRN
PRN Reason: mild pain/STEWART/temp> 100.4F
Stop: 07/07/23 19:45
Last Admin: 06/10/23 00:21 Dose: 650 mg
Aspirin (Aspirin 81 Mg Chewable Tablet) 81 mg PO DAILY KEVIN
Stop: 07/10/23 07:59
Last Admin: 06/12/23 09:48 Dose: 81 mg
Atorvastatin Calcium (Atorvastatin (Lipitor) 40 Mg Tablet) 10 mg PO QPM KEVIN
Stop: 07/09/23 17:59
Duloxetine HCl (Duloxetine Delayed Release 20 Mg Capsule) 20 mg PO DAILY KEVIN
Stop: 07/08/23 07:59
Last Admin: 06/12/23 09:48 Dose: 20 mg
Enoxaparin Sodium (Enoxaparin Sodium 40 Mg/0.4 Ml Syringe) 40 mg SC QPM KEVIN
Stop: 07/07/23 19:45
Last Admin: 06/11/23 07:38 Dose: Not Given
Famotidine (Famotidine 20 Mg Tablet) 20 mg PO HS KEVIN
Stop: 07/07/23 21:59
Last Admin: 06/11/23 20:16 Dose: 20 mg
Folic Acid (Folic Acid 1 Mg Tablet) 1 mg PO DAILY KEVIN
Stop: 07/08/23 07:59
Last Admin: 06/12/23 09:49 Dose: 1 mg
Folic Acid 1 mg/ Sodium (Chloride) 50.2 mls @ 200.8 mls/hr IV DAILYPRN PRN
PRN Reason: if NPO
Stop: 07/07/23 19:45
Lorazepam (Lorazepam 1 Mg Tablet) 1 mg PO Q2HPRN PRN
PRN Reason: MSAS 5-7
Stop: 07/07/23 19:45
Lorazepam (Lorazepam 2 Mg/Ml Vial) 1 mg IV Q1HPRN PRN
PRN Reason: MSAS 8-11
Stop: 07/07/23 19:45
Lorazepam (Lorazepam 2 Mg/Ml Vial) 2 mg IV Q1HPRN PRN
PRN Reason: MSAS > 11
Stop: 07/07/23 19:45
Metoprolol Succinate (Metoprolol 25 Mg Extended Release Tablet) 25 mg PO DAILY KEVIN
Stop: 07/08/23 07:59
Last Admin: 06/12/23 09:48 Dose: 25 mg
Olmesartan (Olmesartan 20 Mg Tablet) 40 mg PO NOON KEVIN
Stop: 07/08/23 11:59
Last Admin: 06/12/23 12:49 Dose: 40 mg
Ondansetron HCl (Ondansetron 4 Mg/2 Ml Vial) 4 mg IV Q6HPRN PRN
PRN Reason: NAUSEA/VOMITING
Stop: 07/07/23 19:45
Sennosides (Sennosides (Senokot) 8.6 Mg Tablet) 17.2 mg PO BID KEVIN
Stop: 07/07/23 19:59
Last Admin: 06/12/23 09:50 Dose: 17.2 mg
Sodium Chloride (Sodium Chloride 0.9% (Preservative Free) 10 Ml Vial) 0 ml IV PRN PRN; Protocol
PRN Reason: To dilute IV Ativan
Stop: 07/07/23 19:45
Sodium Chloride (Sodium Chloride 0.9% (Flush) Syringe) 0 flush IV PER PROTOCOL KEVIN
Stop: 07/07/23 20:59
Last Admin: 06/11/23 20:18 Dose: 1 flush
Thiamine HCl (Thiamine 100 Mg Tablet) 100 mg PO BID KEVIN
Stop: 07/10/23 19:59
Pending Results: No
Total time spent discharging patient (in min): 40
[2023-06-12 13:32] LABS: COVID-19 Antigen Negative (Negative)
== END 2023-06-12 15:03 | DRG 64 ==
LOC: 4 WEST ACU 14:34
PROVIDERS: ADMITTING PHYSICIAN Internal Medicine; ATTENDING PHYSICIAN Internal Medicine; CONSULT PHYSICIAN Orthopaedic Surgery; CONSULT PHYSICIAN Student in an Organized Health Care Education/Training Program; EMERGENCY PHYSICIAN Emergency Medicine
DX: I63.9 Cerebral infarction, unspecified (principal); G93.41 Metabolic encephalopathy; E87.20 Acidosis, unspecified; I45.2 Bifascicular block; E87.1 Hypo-osmolality and hyponatremia; I44.0 Atrioventricular block, first degree; R32 Unspecified urinary incontinence; I10 Essential (primary) hypertension; D51.0 Vitamin B12 deficiency anemia due to intrinsic factor deficiency; E87.6 Hypokalemia; Z96.651 Presence of right artificial knee joint; Z87.891 Personal history of nicotine dependence; Z85.3 Personal history of malignant neoplasm of breast
CPT/HCPCS: 93308; 70450; 70544; 70548; 70551; 73564; 80048; 80053; 80061; 81003; 81015; 82077; 82962; 83605; 83735; 84484; 85025; 85027; 85652; 86140; 87040; 87086; 87502; 87811; 93005; 93321; 93325; 96360; 96361; 97116; 97162; 97166; 97530; 97535; 99285; A9585